=== PATIENT | male | born 1970 | race African-American/Black ===

== ENCOUNTER → 2016-12-16 | Emergency (ER) | payer OTHER ==
[~2016-12-16] MED LIST: IBUPROFEN 600 MG TABLET (FP) PO ONE; METHOCARBAMOL 500 MG TABLET ONE; METHOCARBAMOL 500 MG TABLET PO ONE; OXYCODONE/APAP 5/325MG COMBO TABLET ONE; OXYCODONE/APAP 5/325MG COMBO TABLET PO ONE
[2016-12-16 00:04] VITALS: BMI 28.6
--- NOTE | 2016-12-16 03:51 | PDOC ---
History of Present Illness - General History Source: Patient Exam Limitations: No Limitations - History of Present Illness Initial Comments: 12/16/16 04:52 The patient is a 46-year-old male with a significant past medical history of lower spinal surgery, and presents to the emergency department with left leg pain today. He reports the pain worsened after he twisted his leg slightly, and describes it as a sciatica-like pain. He reports the pain is in his left hip and shoots down his entire left leg. He reports mild numbness exacerbated by lifting of the leg. He states he usually takes Advil and Vicodin with mild relief of pain. The patient denies chest pain, shortness of breath, headache and dizziness. The patient denies fever, chills, nausea, vomit, diarrhea and constipation. The patient denies dysuria, frequency, urgency and hematuria. Allergies: NKDA Past Surgical History: lower spinal surgery Social History: current everyday smoker <Arielle Gutierrez - Last Filed: 12/16/16 05:08> <Mag Hernandez - Last Filed: 12/16/16 05:40> - General Chief Complaint: Pain Stated Complaint: LEG PAIN Time Seen by Provider: 12/16/16 03:51 Past History <Arielle Gutierrez - Last Filed: 12/16/16 05:08> - Past Medical History Other medical history: denies - Surgical History Neurologic Surgery: Yes (back) - Psycho/Social/Smoking Cessation Hx Anxiety: No Suicidal Ideation: No Smoking History: Current some day smoker Have you smoked in the past 12 months: Yes Number of Cigarettes Smoked Daily: 1 Cigars Per Day: 1 Information on smoking cessation initiated: No Hx Alcohol Use: No Drug/Substance Use Hx: No Substance Use Type: None <Mag Hernandez - Last Filed: 12/16/16 05:40> - Past Medical History Allergies/Adverse Reactions: Allergies Allergy/AdvReac Type Severity Reaction Status Date / Time No Known Allergies Allergy Verified 12/16/16 00:04 Home Medications: Ambulatory Orders Diazepam [Valium -] 5 mg PO TID #14 tablet 08/21/15 Naproxen [Naprosyn -] 500 mg PO BID #20 tablet 08/21/15 Methocarbamol [Robaxin -] 500 mg PO TID #30 tablet 12/16/16 Oxycodone HCl/Acetaminophen [Percocet 5/325 -] 1 tab PO Q6H #20 tablet MDD 4 08/03 Review of Systems - Review of Systems Able to Perform ROS?: Yes Comments:: 12/16/16 04:52 CONSTITUTIONAL: Absent: fever, chills, diaphoresis, generalized weakness, malaise, loss of appetite HEENT: Absent: rhinorrhea, nasal congestion, throat pain, throat swelling, difficulty swallowing, mouth swelling, ear pain, eye pain, visual changes CARDIOVASCULAR: Absent: chest pain, syncope, palpitations, irregular heart rate, lightheadedness , peripheral edema RESPIRATORY: Absent: cough, shortness of breath, dyspnea with exertion, orthopnea, wheezing, stridor, hemoptysis GASTROINTESTINAL: Absent: abdominal pain, abdominal distension, nausea, vomiting, diarrhea, constipation, melena, hematochezia GENITOURINARY: Absent: dysuria, frequency, urgency, hesitancy, hematuria, flank pain, genital pain MUSCULOSKELETAL: Present: (+) left leg pain Absent: arthralgia, joint swelling SKIN: Absent: rash, itching, pallor ENDOCRINE: Absent: unexplained weight gain, unexplained weight loss, heat intolerance, cold intolerance NEUROLOGIC: Present: (+) mild numbness of the left leg Absent: headache, dizziness, unsteady gait, seizure, mental status changes, bladder or bowel incontinence PSYCHIATRIC: Absent: anxiety, depression, suicidal or homicidal ideation, hallucinations. <Arielle Gutierrez - Last Filed: 12/16/16 05:08> *Physical Exam - Vital Signs Last Vital Signs Temp Pulse Resp BP Pulse Ox 97.4 F L 56 L 18 125/66 9 L 12/16/16 00:01 12/16/16 00:01 12/16/16 00:01 12/16/16 00:01 12/16/16 00:01 - Physical Exam Comments: 12/16/16 05:08 GENERAL: Afebrile. Well developed, well nourished. Awake and alert. No acute distress. HEENT: Normocephalic, atraumatic. PERRLA, EOMI. No conjunctival pallor. Sclera are non- icteric. Moist mucous membranes. Oropharynx is clear. NECK: Supple. Full ROM. No JVD. Carotid pulses 2+ and symmetric, without bruits. No thyromegaly. No lymphadenopathy. CARDIOVASCULAR: Regular rate and rhythm. No murmurs, rubs, or gallops. Distal pulses are 2+ and symmetric. PULMONARY: No evidence of respiratory distress. Lungs clear to auscultation bilaterally. No wheezing, rales or rhonchi. ABDOMINAL: Soft. Non-tender. Non-distended. No rebound or guarding. No organomegaly. Normoactive bowel sounds. MUSCULOSKELETAL Normal range of motion at all joints. No bony deformities or tenderness. No CVA tenderness. EXTREMITIES: (+) Straight right leg raise 80 degrees without pain. (+) Straight left leg raise 70 degrees with pain, anterior leg more than posterior. No cyanosis. No clubbing. No edema. No calf tenderness. SKIN: Warm and dry. Normal capillary refill. No rashes. No jaundice. NEUROLOGICAL: Alert, awake, appropriate. Cranial nerves 2-12 intact. No deficits to light touch and temperature in face, upper extremities and lower extremities. No motor deficits in the in face, upper extremities and lower extremities. Normoreflexic in the upper and lower extremities. Normal speech. Toes are down- going bilaterally. PSYCHIATRIC: Cooperative. Good eye contact. Appropriate mood and affect. <Arielle Gutierrez - Last Filed: 12/16/16 05:08> - Vital Signs Last Vital Signs Temp Pulse Resp BP Pulse Ox 97.4 F L 56 L 18 125/66 9 L 12/16/16 00:01 12/16/16 00:01 12/16/16 00:01 12/16/16 00:01 12/16/16 00:01 <Mag Hernandez - Last Filed: 12/16/16 05:40> ED Treatment Course - Medications Given in the ED: ED Medications Discontinued Medications Generic Name Dose Route Start Last Admin Trade Name Dexterq PRN Reason Stop Dose Admin Ibuprofen 600 mg 12/16/16 04:07 12/16/16 04:21 Motrin - PO 12/16/16 04:08 600 mg ONCE ONE Administration Methocarbamol 1,000 mg 12/16/16 04:07 12/16/16 04:21 Robaxin - PO 12/16/16 04:08 1,000 mg ONCE ONE Administration Oxycodone/Acetaminophen 2 combo 12/16/16 04:07 12/16/16 04:22 Percocet 5/325 - PO 12/16/16 04:08 Not Given ONCE ONE <Arielle Gutiererz - Last Filed: 12/16/16 05:08> Medical Decision Making - Medical Decision Making 12/16/16 05:35 Patient Name: Jazmin Dean THIS IS A PRELIMINARY REPORT FROM [facility] IMAGES: [id number] EXAM DATE AND TIME: 2016-12-16 04:37:46.0 EXAM: CT LUMBAR SPINE WITHOUT CONTRAST No acute fracture or malalignment. Posterior disc bulge and moderate bilateral neural foraminal stenosis L5-S1. No substantial canal stenosis. Surgical changes L3-L4. THIS DOCUMENT HAS BEEN ELECTRONICALLY SIGNED <Mag Hernandez - Last Filed: 12/16/16 05:40> *DC/Admit/Observation/Transfer - Attestations Scribe Attestion: 12/16/16 04:54 Documentation prepared by Arielle Gutierrez, acting as medical fee clerk for Mag Hernandez MD. 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
[2016-12-16 05:48] VITALS: BP 117/69; PULSE 54; TEMP 97.6
== END | disposition home or self-care (01) ==
LOC: JER
DX: M48.06 Spinal stenosis, lumbar region (principal); M51.26 Other intervertebral disc displacement, lumbar region
CPT/HCPCS: 72131-TC; 99282-25